=== PATIENT | male | born 1980 | race Caucasian/White ===

== ENCOUNTER 2017-10-06 11:00 | Emergency (ER) | payer BC, OTHER ==
[2017-10-06 11:33] VITALS: BP 143/95
[2017-10-06] MEDS ORDERED: Ketorolac 60 MG/2 ML SDV IM ONE (12:03)
--- NOTE | 2017-10-06 12:40 | EDM.PDOC ---
ED HPI GENERAL MEDICAL PROBLEM - General Chief Complaint: Fever Stated Complaint: COLD/FEVER Time Seen by Provider: 10/06/17 11:01 Source of Information: Reports: Patient History Limitations: Reports: No Limitations - History of Present Illness INITIAL COMMENTS - FREE TEXT/NARRATIVE: HISTORY AND PHYSICAL: History of present illness: Patient is a 37-year-old male who presents to the emergency room today with complaints of dry cough fever, body aches 4 days. Has then taking ibuprofen [id number] as needed for fever management. Patient denies any chest pain, shortness of breath, abdominal pain, nausea, vomiting or diarrhea. Has not been around anyone who has been sick over the past few weeks. Reports he has eating and drinking appropriately. No change in his bowel movements or urinary pattern. Has not received the [id number] influenza vaccine. Review of systems: As per history of present illness and below otherwise all systems reviewed and negative. Past medical history: As per history of present illness and as reviewed below otherwise noncontributory. Surgical history: As per history of present illness and as reviewed below otherwise noncontributory. Social history: No reported history of drug or alcohol abuse. Family history: As per history of present illness and as reviewed below otherwise noncontributory. Physical exam: General: Well-developed and well-nourished 89-year-old male. Alert and oriented. Appears nontoxic and in no acute distress. HEENT: Atraumatic, normocephalic, pupils reactive, negative for conjunctival pallor or scleral icterus, mucous membranes moist, throat clear, neck supple, nontender, trachea midline. Lungs: Clear to auscultation, breath sounds equal bilaterally, chest nontender. Heart: S1S2, regular rate and rhythm without overt murmurs. Abdomen: Soft, nondistended, nontender. Negative for masses or hepatosplenomegaly. Negative for costovertebral tenderness. Pelvis: Stable nontender. Genitourinary: Deferred. Rectal: Deferred. Extremities: Atraumatic, negative for cords or calf pain. Neurovascular unremarkable. Neuro: Awake, alert, oriented. Cranial nerves II through XII unremarkable. Cerebellum unremarkable. Motor and sensory unremarkable throughout. Exam nonfocal. Patient tested positive for influenza A. He is out of the window for Tamiflu. Chest x-ray shows no infiltrate or pneumonia. Informed patient that he should not return to work until he is fever free for 24 hours, as he is around people with his employment. We'll give him some Tylenol with codeine for nighttime use. We did discuss the use of Tylenol/ibuprofen for pain and fever management. Instructed him to increase his oral fluids to prevent dehydration. He will follow-up with his primary care provider in the next 1-2 days. Denies any further questions or concerns. Diagnostics: Influenza, chest x-ray Therapeutics: [] Impression: Influenza A Plan: 1. You tested positive for influenza A, antibiotics are not directed for viral infections. 2. Supportive care at home for fever, chills, body aches. This includes Tylenol and/or ibuprofen, drink plenty of fluids to prevent dehydration, cool mist humidifier may be helpful as well. Tylenol with Codeine has been prescribed Jonathan, this may make you drowsy so do not take it when driving or at work. 3. Please follow-up with your primary care provider in the next 1-2 days. Return to the ED as needed and as discussed. Definitive disposition and diagnosis as appropriate pending reevaluation and review of above. headache Pain Score (Numeric/FACES): 8 - Related Data Allergies Allergy/AdvReac Type Severity Reaction Status Date / Time No Known Allergies Allergy Verified 10/06/17 11:29 Home Meds: Home Meds . [No Known Home Meds] 10/03/15 [History] Past Medical History - Past Health History Medical/Surgical History: Denies Medical/Surgical History HEENT History: Reports: None Cardiovascular History: Reports: None Respiratory History: Reports: None Gastrointestinal History: Reports: None Genitourinary History: Reports: None Musculoskeletal History: Reports: None Neurological History: Reports: None Psychiatric History: Reports: None Endocrine/Metabolic History: Reports: None Hematologic History: Reports: None Immunologic History: Reports: None Oncologic (Cancer) History: Reports: Leukemia, Other (See Below) Other Oncologic History: 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, 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 Dermatologic History: Reports: None - Infectious Disease History Infectious Disease History: Reports: None - Past Surgical History Head Surgeries/Procedures: Reports: None HEENT Surgical History: Reports: None Cardiovascular Surgical History: Reports: None Respiratory Surgical History: Reports: None GI Surgical History: Reports: None Male Surgical History: Reports: None Endocrine Surgical History: Reports: None Neurological Surgical History: Reports: None Oncologic Surgical History: Reports: None Dermatological Surgical History: Reports: None Social & Family History - Family History Family Medical History: Noncontributory - Tobacco Use Smoking Status *Q: Never Smoker Second Hand Smoke Exposure: No - Caffeine Use Caffeine Use: Reports: Coffee - Recreational Drug Use Recreational Drug Use: No ED ROS ENT - Review of Systems Review Of Systems: ROS reveals no pertinent complaints other than HPI. ED EXAM, ENT - Physical Exam Exam: See Below (See dictation) Course - Vital Signs Last Recorded V/S: Last Vital Signs Temp 99.1 F 10/06/17 11:30 Pulse 107 H 10/06/17 11:30 Resp 18 10/06/17 11:30 BP 143/95 H 10/06/17 11:30 Pulse Ox 94 L 10/06/17 11:30 - Orders/Labs/Meds Orders: Active Orders 24 hr Category Date Time Status Chest 2V [CR] Stat Exams 10/06/17 12:03 Taken Meds: Medications Discontinued Medications Generic Name Dose Route Start Last Admin Trade Name Alen PRN Reason Stop Dose Admin Ketorolac Tromethamine 60 mg 10/06/17 12:03 10/06/17 12:20 Toradol IM 10/06/17 12:04 60 mg ONETIME ONE Administration Departure - Departure Time of Disposition: 13:22 Disposition: Home, Self-Care 01 Clinical Impression: Influenza A - Discharge Information Instructions: Influenza, Adult, [id number] Referrals: Kanu Tuttle MD [Primary Care Provider] - Forms: ED Department Discharge Additional Instructions: My general discharge The following information is given to patients seen in the emergency department who are being discharged to home. This information is to outline your options for follow-up care. We provide all patients seen in our emergency department with a follow-up referral. The need for follow-up, as well as the timing and circumstances, are variable depending upon the specifics of your emergency department visit. If you don't have a primary care physician on staff, we will provide you with a referral. We always advise you to contact your personal physician following an emergency department visit to inform them of the circumstance of the visit and for follow-up with them and/or the need for any referrals to a consulting specialist. The emergency department will also refer you to a specialist when appropriate. This referral assures that you have the opportunity for follow-up care with a specialist. All of these measure are taken in an effort to provide you with optimal care, which includes your follow-up. Under all circumstances we always encourage you to contact your private physician who remains a resource for coordinating your care. When calling for follow-up care, please make the office aware that this follow-up is from your recent emergency room visit. If for any reason you are refused follow-up, please contact the [facility] Emergency Department at and asked to speak to the emergency department charge nurse. [facility] [address] [place] [id number] 1. You tested positive for influenza A, antibiotics are not directed for viral infections. 2. Supportive care at home for fever, chills, body aches. This includes Tylenol and/or ibuprofen, drink plenty of fluids to prevent dehydration, cool mist humidifier may be helpful as well. Tylenol with Codeine has been prescribed Jonathan, this may make you drowsy so do not take it when driving or at work. 3. Please follow-up with your primary care provider in the next 1-2 days. Return to the ED as needed and as discussed. - My Orders Last 24 Hours: My Active Orders 10/06/17 12:03 Chest 2V [CR] Stat - Assessment/Plan Last 24 Hours: My Active Orders 10/06/17 12:03 Chest 2V [CR] Stat
--- NOTE | 2017-10-07 13:38 | CR ---
EXAM DATE: 10/06/17 PATIENT'S AGE: 37 Patient: MELY RAO Facility: [place], [place] Site . Site : [id number] Study: XRay Chest [id number] 1:06:24 PM Ordering Physician: Doctor Sanchez Final Report: Indication: Pain. Shortness of breath Technique: PA and lateral chest x-rays Comparison: None Findings: Heart size normal. Lungs are hyperinflated. Lungs are clear without infiltrate. Chest otherwise negative. Dictated by Lanre Ng MD @ Oct 06 2017 1:11PM (Electronic Signature) Report Signed by Proxy. NICOLE
== END 2017-10-06 13:31 | disposition home or self-care (01) ==
LOC: MW.ED 11:00
DX: J10.1 Influenza due to other identified influenza virus with other respiratory manifestations (principal)
CPT/HCPCS: 71046; 87804; 96372; 99284; J1885; 99283